=== PATIENT | female | born 1990 | race Caucasian/White ===

== ENCOUNTER → 2017-04-09 | Outpatient (CLI) | payer MEDICAID, OTHER ==
[~2017-04-09] MED LIST: ALPR.5T PO; ALPR0.254 PO; CITA10TA70 PO; DULO30CA3 PO; DULO30CA48 PO; FLUO15CR34 TOP; HYDR-3812 PO; IBP600T1 PO; IBUP-1779 PO; IBUP-30 PO; LYSI500T37 PO; MUPI15CR11 TOP; SULF-222 PO; SULF1TAB35 PO; [UNRECOGNIZED DRUG - OTHER] TOP
--- NOTE | 2017-04-09 19:01 | Diagnostic Imaging Report ---
INDICATION: survey. TECHNIQUE: Multiple real-time grayscale images were obtained over the gravid uterus. COMPARISON: None FINDINGS: heart rate is 149 beats per minute. The placenta is posterior. No placenta previa. The amniotic fluid amount appears within normal. The posterior fossa, lateral ventricles, four-chamber view, stomach, kidneys, cord insertion, bladder and two umbilical arteries are demonstrated with no abnormality. The spine appears unremarkable. Biometrical measurements are as follows: Biparietal 4.7 cm, age 20 weeks 2 days. Head circumference 16.8 cm, age 19 weeks 4 days. Abdominal circumference 14.5 cm, age 19 weeks 6 days. Femur length 3.0 cm, age 19 weeks 2 days. Sonographic estimate age: 19 weeks 6 days. This compares to a gestational age of 20 weeks and 1 day based on ARSENIO of 08/26/[address] Jacinto. Sonographic estimated date of delivery: 08/28/17. Estimated Weight: 301 gm (+/- 44 gm). LMP percentile: 18%. heart rate: 149 beats per minute. number: 1 of 1. IMPRESSION: Completed survey. Dictated by: Dictated on workstation # [id number]
== END ==
LOC: RAD 14:36
PROVIDERS: ATTEND Obstetrics & Gynecology
DX: Z34.82 Encounter for supervision of other normal pregnancy, second trimester (principal); Z36 Encounter for antenatal screening of mother; Z3A.19 19 weeks gestation of pregnancy
CPT/HCPCS: 76805

== ENCOUNTER 2017-08-20 09:23 | Inpatient (IN) | payer MEDICAID ==
[2017-08-20] VITALS (34 sets, daily range): BP systolic 87–162; BP diastolic 48–88
[~2017-08-20] VITALS: Ht 162.6 cm; Wt 69.4 kg
[2017-08-20] MEDS ORDERED: D5 LR IV SOLUTION 1,000 ML IV SCH (09:43)
[2017-08-20] MEDS ORDERED: MINERAL OIL CONCENTRATE 99.9% 15 ML UDC TOP PRN (09:45)
[2017-08-20 10:09] LABS: BASOPHILS % (AUTO) 0 % (0-10); EOSINOPHILS # (AUTO) 0.2 10^3/uL (0.0-0.3); EOSINOPHILS % (AUTO) 1 % (0-10); LYMPHOCYTES # (AUTO) 1.9 X 10^3 (1.0-4.0); LYMPHOCYTES % (AUTO) 11 % (12-44); MEAN CORPUSCULAR HEMOGLOBIN 27 PG (25-34); MEAN CORPUSCULAR HGB CONC 32 G/DL (32-36); MEAN CORPUSCULAR VOLUME 83 FL (80-99); MEAN PLATELET VOLUME 11.2 FL (7.4-10.4); MONOCYTES # (AUTO) 1.2 X 10^3 (0.0-1.0); MONOCYTES % (AUTO) 7 % (0-12); NEUTROPHILS # (AUTO) 13.9 X 10^3 (1.8-7.8); NEUTROPHILS % (AUTO) 81 % (42-75); PLATELET COUNT 253 10^3/uL (130-400); RED BLOOD COUNT 3.95 10^6/uL (4.35-5.85); WHITE BLOOD COUNT 17.2 10^3/uL (4.3-11.0)
[2017-08-20] MEDS ORDERED: SUFENTA 0.6MCG/ML BUPIVA 0.125 100 ML ONE (10:15)
[2017-08-20 10:29] LABS: BAND NEUTROPHILS 1 %; NEUTROPHILS % (MANUAL) 81 %
[2017-08-20 10:30] LABS: ANISOCYTOSIS SLIGHT; BASOPHILS % (MANUAL) 0 %; EOSINOPHILS % (MANUAL) 1 %; HYPOCHROMASIA SLIGHT; LYMPHOCYTES % (MANUAL) 11 %; POIKILOCYTOSIS SLIGHT; REACTIVE LYMPHOCYTES 1 %
[2017-08-20] MEDS ORDERED: BUPIVACAINE 0.25% 30 ML (SENSORCAINE) VIAL ONE ×2 (10:43)
[2017-08-20] MEDS ORDERED: fentaNYL INJECTION 100 MCG/2 ML AMP ONE ×2 (10:43→10:44)
[2017-08-20] MEDS: EPIDURAL (SUFENTA 0.6MCG/ML BUPIVA 0.125%) 100 ML BAG EPI SCH (11:00)
[2017-08-20] MEDS ORDERED: ONDANSETRON 4 MG/2 ML (SDV) Z0FRAN ONE (11:01)
[2017-08-20] MEDS ORDERED: LACTATED RINGERS 1,000 ML IV ONE (11:35)
[2017-08-20] MEDS ORDERED: NALOXONE 0.4 MG/ML 1 ML (NARCAN) VIAL IV PRN (11:45)
[2017-08-20] MEDS ORDERED: ONDANSETRON 4 MG/2 ML (SDV) Z0FRAN IV PRN (11:45)
--- NOTE | 2017-08-20 12:07 | History & Physical-OB ---
OB - Chief Complaint & HPI Date/Time Date of Admission: Date of Admission: 08/20/2017 Time Seen by Provider: 12:30 Chief Complaint/History OB-Reason for Admission/Chief: Onset of Labor Hx : 2 Hx Para: 0 Expected Date of Delivery: Aug 26, 2017 Gestational Age in Weeks: 39 Gestational Age in Days: 1 Admission Nurse Assessment Rev: Yes History of Labs A pos Antibody neg RI RPR NR HBsAg NR HIV NR GC neg GBS neg Hx of + THC Allergies and Home Medications Allergies Coded Allergies: No Known Drug Allergies (Unverified , 09/12/13) Home Medications Alprazolam 0.25 Mg Tablet, 0.25 MG PO BID PRN for ANXIETY, (Reported) Duloxetine HCl 30 Mg Capsule.dr, 30 MG PO DAILY, (Reported) Fluocinolone Acetonide 15 Gm Cream..g., TOP DAILY, (Reported) Hydrocodone/Acetaminophen 1 Each Tablet, 1 TAB PO Q4H PRN for pain, #20 Ref 0 Prescribed by: KAMLESH PARKER on 12/17/15 0955 Ibuprofen 400 Mg Tablet, 400 MG PO Q6H PRN for PAIN, #60 Prescribed by: KAMLESH PARKER on 12/17/15 0955 Lysine HCl 500 Mg Tablet, 500 MG PO DAILY, (Reported) Mupirocin Calcium 15 Gm Cream..g., TOP TID, (Reported) Sulfamethoxazole/Trimethoprim 1 Each Tablet, 1 TAB PO BID for 10 Days, (Reported ) 10 DAY SUPPLY FILLED 12-12-15 OB - History Hx of Present Care: Yes Ultrasounds: Normal mid trimester US Obstetrical Complications: None Medical Complications: None Other Concerns: History of drug abuse. + THC on urine dip Delivery History Hx Blood Disorders: No Adverse Rxn to Tranfusion: No Patient Past Medical History depression Social History/Family History HIV/AIDS: No Sexually Transmitted Disease: Yes (HPV) Immunizations Tetanus Booster (TDap): More than 5yrs OB - Admission Exam Physical Exam HEENT: NCAT Heart: Rhythm Normal Lungs: Clear Abdomen: Gravid Extremities: Normal Reflexes: Normal Cervical Dilatation: 3cm Effacement: 100% Station: -1 Membranes: Intact Heart Rate: 130's Accelerations: Accelerations Present Decelerations: No Decelerations Short Term Variability: Present Diagrammer And Seamer Variability: Average (6-25) Contractions on Admission: < 5 Minutes Apart Intensity: Firm Labs Laboratory Tests Test 08/20/17 09:55 Range/Units White Blood Count 17.2 H 4.3-11.0 10^3/uL Red Blood Count 3.95 L 4.35-5.85 10^6/uL Hemoglobin 10.5 L 11.5-16.0 G/DL Hematocrit 33 L 35-52 % Mean Corpuscular Volume 83 80-99 FL Mean Corpuscular Hemoglobin 27 25-34 PG Mean Corpuscular Hemoglobin Concent 32 32-36 G/DL Red Cell Distribution Width 15.0 H 10.0-14.5 % Platelet Count 253 130-400 10^3/uL Mean Platelet Volume 11.2 H 7.4-10.4 FL Neutrophils (%) (Auto) 81 H 42-75 % Lymphocytes (%) (Auto) 11 L 12-44 % Monocytes (%) (Auto) 7 0-12 % Eosinophils (%) (Auto) 1 0-10 % Basophils (%) (Auto) 0 0-10 % Neutrophils # (Auto) 13.9 H 1.8-7.8 X 10^3 Lymphocytes # (Auto) 1.9 1.0-4.0 X 10^3 Monocytes # (Auto) 1.2 H 0.0-1.0 X 10^3 Eosinophils # (Auto) 0.2 0.0-0.3 10^3/uL Basophils # (Auto) 0.0 0.0-0.1 10^3/uL Neutrophils % (Manual) 81 % Lymphocytes % (Manual) 11 % Monocytes % (Manual) 5 % Eosinophils % (Manual) 1 % Basophils % (Manual) 0 % Band Neutrophils 1 % Reactive Lymphocytes 1 % Toxic Granulation 1+ Hypochromasia SLIGHT Poikilocytosis SLIGHT Anisocytosis SLIGHT Elliptocytes SLIGHT OB - Assessment/Plan/Diagnosis Assessment Assessment: active labor Plan Plan: Expectant Management Discharge Diagnosis Diagnosis: 27 yo @ 39.1 Active labor GBS neg History of THC use with + UDS VITA BLOCK DO Aug 20, 2017 12:07 pm
[2017-08-20] MEDS ORDERED: CATHETER FLUSH 10 ML SYR IV SCH ×2 (14:00→22:00)
[2017-08-20] MEDS ORDERED: OXYTOCIN/NORMAL SALINE 500 ML IV ONE (15:03)
[2017-08-20] MEDS ORDERED: LIDOCAINE/EPI 2% 1:200,00 (XYLOCAINE) 10 ML VIAL ONE (15:03)
[2017-08-20] MEDS: OXYTOCIN/NORMAL SALINE 500 ML IV SCH ×2 (15:26→15:59)
--- NOTE | 2017-08-20 15:37 | OB Labor & Delivery Record ---
L&D History Date of Service Date of Service: Aug 20, 2017 History Expected Date of Delivery: Aug 26, 2017 Gestational Age in Weeks: 39 Hx : 2 Hx Para: 0 Complications Events: Routine care Operative Indications (Cesarea: N/A-Vaginal Delivery Intrapartal Events: None L&D Stage1 Stage One Onset of Labor - Date: Aug 20, 2017 Monitors and Tracing Monitor Mode: External Monitor Accelerations: Uniform Monitor Decelerations: None Station: -2 Kinesiology Internship Variability: Average (6-10) Short Term Variability: Present Presentation: Vertex Vital Signs VS - Last 72 Hours, by Label 08/20/17 08/20/17 08/20/17 08/20/17 10:10 10:27 10:46 10:51 Pulse 67 59 63 66 Resp 22 22 22 22 B/P (MAP) 162/88 151/88 144/69 132/76 Pulse Ox 100 100 O2 Delivery Room Air Room Air 08/20/17 08/20/17 08/20/17 08/20/17 11:01 11:06 11:10 11:14 Pulse 93 79 61 96 Resp 22 18 18 18 B/P (MAP) 120/75 93/52 87/48 111/52 Pulse Ox 100 100 100 98 O2 Delivery Room Air Room Air Room Air Room Air 08/20/17 08/20/17 08/20/17 08/20/17 11:17 11:30 11:34 11:39 Pulse 63 64 57 61 Resp 18 18 18 18 B/P (MAP) 95/49 93/51 104/56 92/51 Pulse Ox 99 100 100 99 O2 Delivery Room Air Room Air Room Air Room Air 08/20/17 08/20/17 08/20/17 08/20/17 11:44 11:48 11:52 12:11 Pulse 63 58 66 57 Resp 18 18 18 18 B/P (MAP) 105/58 108/64 109/54 121/59 Pulse Ox 99 100 100 100 O2 Delivery Room Air Room Air Room Air Room Air 08/20/17 08/20/17 08/20/17 12:18 12:24 12:44 Pulse 69 66 64 Resp 18 18 18 B/P (MAP) 130/74 117/79 127/74 Pulse Ox 96 99 99 O2 Delivery Room Air Room Air Room Air Rupture of Membranes Spontaneous Ruture of Membrane: No Amniotic Membrane Rupture Time: 12:45 Amniotic Membrane Fluid Desc.: Clear Vaginal Bleeding Description: Normal Show Progress/Notes Patient progressed to complete without any augmentation. Epidural received during labor course. L&D Stage2 Stage Two Stage II Date: Aug 20, 2017 Monitors and Tracing Monitor Mode: External Monitor Accelerations: None Monitor Decelerations: Variable Kinesiology Internship Variability: Average (6-10) Short Term Variability: Present Position: Right Occiput Anterior Presentation: Vertex Cord Descript/Complications Cord Vessel Description: 3 Vessels Delivery Type Infant Delivery Method: Spontaneous Vaginal Anterior Shoulder: Right Episiotomy/Perineal Laceration Laceraction(s)/Extensions: Yes Episiotomy Description: Perineal Extension/lac, 1st degree Sutures Used: Vicryl Degree (describe repair) 1st degree perineal laceration repaired using 3-0 vicryl rapide. Condition of Infant Delivery 1 minute Comment: 8 5 minute Comment: 9 Condition of Condition of : Living Exam: No Observed Abnormalities live female weight 6lbs 11 oz Resuscitation Resuscitation: N/A - Spontaneous Resp L&D Stage3 Stage Three Stage III Date: Aug 20, 2017 Pictocin Pitocin Administration Comment: 30 mu wide open at delivery of placenta Placenta Delivery Placenta Delivery: Spontaneous Delivery Summary Summary Estimated blood loss (mL): 250 Condition of Delivery Examined: Cervix Examined, Uterus Explored Post Hemorrhage: No Condition of Mother stable Condition of (s) stable UMAIRVITA Supriya LOPEZ Aug 20, 2017 3:37 pm
[2017-08-20] MEDS ORDERED: TETANUS,DIPTH,PERTUSS P/F (BOOSTRIX) 0.5 ML VIAL IM ONE (15:45)
[2017-08-20] MEDS ORDERED: APAP 300 MG/CODEINE 30 MG (TYLENOL #3) TAB PO PRN (15:45)
[2017-08-20] MEDS ORDERED: MEASLES,MUMPS,RUBELLA 1 EA INJ SQ ONE (15:45)
[2017-08-20] MEDS: IBUPROFEN 600 MG (MOTRIN) TAB PO SCH ×2 (16:46→23:06)
[2017-08-20] MEDS ORDERED: PREN-53 PO (18:42)
[2017-08-20] MEDS: DIBUCAINE (NUPERCAINAL) 1% OINT 30 GM TOP PRN (19:59)
[2017-08-20] MEDS: DOCUSATE SODIUM 100 MG (COLACE) CAP PO SCH (19:59)
[2017-08-20] MEDS: WITCH HAZEL(TUCKS) 40 EA JAR TOP PRN (20:00)
[2017-08-20] MEDS: BENZOCAINE/MENTHOL (DERMOPLAST) 56 ML CAN TP PRN (20:00)
--- OUTSIDE RECORDS SUMMARY | 2017-08-20 21:18 | XMS REPORT ---
Author YANICK [facility] eClinicalWorks Address Unknown Phone Unavailable Care Team Providers Care Restaurant Managing Partner Name Role Phone YANICK GUTIERRZE CP Unavailable Allergies, Adverse Reactions, Alerts Substance Reaction Event Type N.K.D.A. Info Not Available Non Drug Allergy Problems Problem Type Condition Code Onset Dates Condition Status Assessment Acute pain of right shoulder M25.511 Active Medications No Known Medications Procedures Procedure Coding System Code Date Office Visit, New Pt., Level 3 CPT-4 28328 May 20, 2016 Vital Signs Date/Time: May 20, 2016 Cardiac Monitoring Heart Rate 108 bpm Weight 123.7 lbs Height 64 in Blood Pressure Diastolic 70 mmHg Blood Pressure Systolic 110 mmHg Results No Known Results Summary Purpose eClinicalWorks Submission
--- OUTSIDE RECORDS SUMMARY | 2017-08-20 21:19 | XMS REPORT | Continuity of Care Document ---
Author Author [facility] Organization [facility] Address Unknown Phone Unavailable Allergies Active Description Code Type Severity Reaction Onset Reported/Identified Relationship to Patient Clinical Status Yes No Known Drug Allergies [id number] Drug Allergy Unknown N/ A 09/12/2013 Medications Problems Date Dx Coded Attending Type Code Diagnosis Diagnosed By 09/12/2013 DARREN SANTANA, YOSEPH T Ot 923.11 CONTUSION OF ELBOW 09/12/2013 DARREN SANTANA, YOSEPH T Ot 959.2 SHLDR/UPPER ARM INJ NOS 09/12/2013 DARREN SANTANA, YOSEPH T Ot E000.8 OTHER EXTERNAL CAUSE STATUS 09/12/2013 DARREN SANTANA, YOSEPH T Ot E849.0 ACCIDENT IN HOME 09/12/2013 DARREN SANTANA, YOSEPH T Ot E880.9 FALL ON STAIR/STEP NEC 12/17/2015 KAMLESH PARKER DO Ot B95.62 METHICILLIN RESIS STAPH INFCT CAUSING DI 12/17/2015 KAMLESH PARKER DO Ot F32.9 MAJOR DEPRESSIVE DISORDER, SINGLE EPISOD 12/17/2015 KAMLESH PARKER DO Ot F41.9 ANXIETY DISORDER, UNSPECIFIED 12/17/2015 KAMLESH PARKER DO Ot L02.415 CUTANEOUS ABSCESS OF RIGHT LOWER LIMB 12/17/2015 KAMLESH PARKER DO Ot L40.9 PSORIASIS, UNSPECIFIED 04/10/2017 VITA BLOCK DO Ot Z34.82 ENCOUNTER FOR SUPRVSN OF NORMAL PREGNANC 04/10/2017 VITA BLOCK DO Ot Z36 ENCOUNTER FOR SCREENING OF MOT 04/10/2017 VITA BLOCK DO Ot Z3A.19 19 WEEKS GESTATION OF 04/10/2017 VITA BLOCK DO Ot Z34.82 ENCOUNTER FOR SUPRVSN OF NORMAL PREGNANC 04/10/2017 VITA BLOCK DO Ot Z36 ENCOUNTER FOR SCREENING OF MOT 04/10/2017 VITA BLOCK DO Ot Z3A.19 19 WEEKS GESTATION OF 04/21/2017 VITA BLOCK DO Ot Z34.82 ENCOUNTER FOR SUPRVSN OF NORMAL PREGNANC 04/21/2017 VITA BLOCK DO Ot Z36 ENCOUNTER FOR SCREENING OF MOT 04/21/2017 VITA BLOCK DO Ot Z3A.19 19 WEEKS GESTATION OF 04/24/2017 VITA BLOCK DO Ot Z34.82 ENCOUNTER FOR SUPRVSN OF NORMAL PREGNANC 04/24/2017 VITA BLOCK DO Ot Z36 ENCOUNTER FOR SCREENING OF MOT 04/24/2017 VITA BLOCK DO Ot Z3A.19 19 WEEKS GESTATION OF Procedures Code Description Performed By Performed On [id number] EXCISION OF R LOW LEG SUBCU/FASCIA, OPEN 12/14/2015 Results Encounters ACCT No. Visit Date/Time Discharge Status Pt. Type Provider Facility Loc./Unit Complaint [id number] 06/23/2014 19:49:35 06/23/2014 23: 59:59 CLS Outpatient Alexandre Kaye [id number] 04/09/2017 14:36:00 2016 23:59:59 CLS Outpatient VITA BLOCK DO [facility] RAD ANATOMY SCREEN [id number] 12/13/2015 16:06:00 2015 10:50:00 DIS Inpatient KAMLESH PARKER DO [facility] 4TH RT LEG MRSA [id number] 09/12/2013 05:05:00 2012 06:35:00 DIS Emergency DARREN SANTANA, YOSEPH Cameron [facility] ER LEFT ARM PAIN, POSS BROKEN [id number] 04/26/2013 09:52:00 2012 23:59:59 CLS Outpatient MAJOR, MONISHA GAME PROTECTOR [facility] QUICK FOOT PAIN
[2017-08-21] VITALS: BP 121/71
[2017-08-21 04:15] VITALS: BP 117/66
[2017-08-21] MEDS: IBUPROFEN 600 MG (MOTRIN) TAB PO SCH ×3 (04:24→19:39)
[2017-08-21 05:51] LABS: BASOPHILS % (AUTO) 0 % (0-10); EOSINOPHILS # (AUTO) 0.2 10^3/uL (0.0-0.3); EOSINOPHILS % (AUTO) 1 % (0-10); LYMPHOCYTES # (AUTO) 2.8 X 10^3 (1.0-4.0); LYMPHOCYTES % (AUTO) 18 % (12-44); MEAN CORPUSCULAR HEMOGLOBIN 27 PG (25-34); MEAN CORPUSCULAR HGB CONC 32 G/DL (32-36); MEAN CORPUSCULAR VOLUME 84 FL (80-99); MEAN PLATELET VOLUME 10.6 FL (7.4-10.4); MONOCYTES # (AUTO) 1.4 X 10^3 (0.0-1.0); MONOCYTES % (AUTO) 9 % (0-12); NEUTROPHILS % (AUTO) 71 % (42-75); PLATELET COUNT 207 10^3/uL (130-400); RED BLOOD COUNT 3.03 10^6/uL (4.35-5.85); WHITE BLOOD COUNT 15.4 10^3/uL (4.3-11.0)
[2017-08-21] MEDS ORDERED: INFLUENZA TRIvalent 2017-2018 0.5 ML/45 MCG SYR IM ONE (08:15)
--- NOTE | 2017-08-21 09:16 | Anesthesia-Regional Post-Op ---
Regional Patient Condition Mental Status: Alert, Oriented x3 Circulation: Same as Pre-Op Headache: Absent Sensation: Full Recovery Motor Block: Absent Post Op Complications Complications None Follow Up Care/Instructions Patient Instructions None needed. Anesthesia/Patient Condition Patient is doing well, no complaints, stable vital signs, no apparent adverse anesthesia problems. No complications reported per nursing. ISABELA PEARSON CRNA Aug 21, 2017 09:16
[2017-08-21] MEDS ORDERED: TETANUS,DIPTH,PERTUSS P/F (BOOSTRIX) 0.5 ML VIAL IM ONE (09:17)
[2017-08-21] MEDS: BENZOCAINE/MENTHOL (DERMOPLAST) 56 ML CAN TP PRN (09:29)
[2017-08-21] MEDS: WITCH HAZEL(TUCKS) 40 EA JAR TOP PRN (09:29)
[2017-08-21] MEDS: DIBUCAINE (NUPERCAINAL) 1% OINT 30 GM TOP PRN (09:29)
[2017-08-21] MEDS: PRENATAL VITAMIN 1 EA TAB PO SCH (09:30)
[2017-08-21] MEDS: DOCUSATE SODIUM 100 MG (COLACE) CAP PO SCH ×2 (09:30→22:22)
[2017-08-21] MEDS: FERROUS SULF 325 MG (IRON) TAB PO SCH (09:30)
--- NOTE | 2017-08-21 09:31 | Discharge Inst-Women's Service ---
Discharge Inst-Women's Serv Depart Medication/Instructions New, Converted or Re-Newed RX: RX on Chart Consults/Follow Up Additional Follow Up: Yes Orders/Referrals Dr. Block in 6 weeks Activity Activity: Activity as Tolerated Driving Instructions: No Driving for 1 Week NO SMOKING: NO SMOKING Nothing Inside Vagina: No Douching, No [place], No Tampons Diet Discharge Diet: No Restrictions Symptoms to Report to : Bleeding Excessive, Pain Increased, Fever Over 101 Degrees F, Vaginal Bleeding Increase, Questions/Concerns For Any Problems or Questions: Contact Your Physician Skin/Wound Care Bathing Instructions: Shower (x 2 weeks) VITA BLOCK DO Aug 21, 2017 9:30 am
[2017-08-21] MEDS ORDERED: IBUP-1773 PO (09:32)
[2017-08-21] MEDS ORDERED: BENZ56AE2 TP (09:32)
[2017-08-21] MEDS ORDERED: ACET1TAB43 PO (09:32)
[2017-08-21 09:35] VITALS: BP 126/86
--- NOTE | 2017-08-21 10:19 | Progress Note-Standard ---
Standard Progress Note Progress Notes/Assess & Plan Date Seen by Provider: Aug 21, 2017 Time Seen by Provider: 09:55 Progress/Assessment & Plan Day # 1 Subjective: Patient is without complaints. Ambulating, voiding. Tolerating a regular diet without nausea or vomiting. Normal lochia. Pain is well controlled with oral pain medications. breast feeding Objective: Vital Sign - Last 24 Hours 08/20/17 08/20/17 08/20/17 08/20/17 10:27 10:46 10:51 11:01 Pulse 59 63 66 93 Resp 22 22 22 22 B/P (MAP) 151/88 144/69 132/76 120/75 Pulse Ox 100 100 100 O2 Delivery Room Air Room Air Room Air 08/20/17 08/20/17 08/20/17 08/20/17 11:06 11:10 11:14 11:17 Pulse 79 61 96 63 Resp 18 18 18 18 B/P (MAP) 93/52 87/48 111/52 95/49 Pulse Ox 100 100 98 99 O2 Delivery Room Air Room Air Room Air Room Air 08/20/17 08/20/17 08/20/17 08/20/17 11:30 11:34 11:39 11:44 Pulse 64 57 61 63 Resp 18 18 18 18 B/P (MAP) 93/51 104/56 92/51 105/58 Pulse Ox 100 100 99 99 O2 Delivery Room Air Room Air Room Air Room Air 08/20/17 08/20/17 08/20/17 08/20/17 11:48 11:52 12:11 12:18 Pulse 58 66 57 69 Resp 18 18 18 18 B/P (MAP) 108/64 109/54 121/59 130/74 Pulse Ox 100 100 100 96 O2 Delivery Room Air Room Air Room Air Room Air 08/20/17 08/20/17 08/20/17 08/20/17 12:24 12:44 12:58 13:29 Pulse 66 64 61 68 Resp 18 18 18 18 B/P (MAP) 117/79 127/74 131/80 132/79 Pulse Ox 99 99 O2 Delivery Room Air Room Air Room Air Room Air 08/20/17 08/20/17 08/20/17 08/20/17 13:44 14:00 14:29 15:00 Temp 98.2 Pulse 75 89 58 65 Resp 18 18 18 20 B/P (MAP) 131/74 122/60 141/75 128/60 O2 Delivery Room Air Room Air Room Air Room Air 08/20/17 08/20/17 08/20/17 08/20/17 15:16 15:27 15:42 15:57 Pulse 72 65 85 97 Resp 20 20 20 20 B/P (MAP) 134/68 121/58 140/81 119/62 O2 Delivery Room Air Room Air Room Air Room Air 08/20/17 08/20/17 08/20/17 08/20/17 16:28 16:42 17:01 17:11 Temp 98.4 Pulse 71 67 65 87 Resp 20 20 18 18 B/P (MAP) 130/60 113/56 115/63 119/64 O2 Delivery Room Air Room Air Room Air Room Air 08/20/17 08/21/17 08/21/17 08/21/17 20:57 00:00 04:15 09:35 Temp 98.4 99.1 98.7 98.3 Pulse 69 72 68 75 Resp 18 18 18 18 B/P (MAP) 109/50 121/71 117/66 126/86 Pulse Ox 99 98 98 96 O2 Delivery Room Air Room Air Room Air Room Air Physical Exam: General - Alert and oriented, no apparent distress Abdomen - Soft, appropriately tender to palpation, non-distended, fundus firm at umbilicus Extremities - no edema, negative Yandel's bilaterally Assessment: 1. post- day # 1, status post vaginal delivery. Recovering well, hemodynamically stable Plan: Routine care. Encourage breast feeding. Encourage ambulation. Ferrous sulfate supplementation. Plan for discharge tomorrow VITA BLOCK DO Aug 21, 2017 10:19 am
[2017-08-21 13:00] VITALS: BP 118/72
[2017-08-21 19:43] VITALS: BP 122/76
[2017-08-22 02:12] VITALS: BP 103/62
[2017-08-22] MEDS: IBUPROFEN 600 MG (MOTRIN) TAB PO SCH ×2 (02:12→08:59)
[2017-08-22] MEDS ORDERED: FERR-74 PO (07:54)
--- NOTE | 2017-08-22 08:09 | Progress Note-Standard ---
Standard Progress Note Progress Notes/Assess & Plan Date Seen by Provider: Aug 22, 2017 Time Seen by Provider: 07:45 Progress/Assessment & Plan Day # 2 Subjective: Patient is without complaints. Ambulating, voiding. Tolerating a regular diet without nausea or vomiting. Normal lochia. Pain is well controlled with oral pain medications. breast feeding Objective: Vital Sign - Last 24 Hours 08/21/17 08/21/17 08/21/17 08/22/17 09:35 13:00 19:43 02:12 Temp 98.3 97.9 97.6 98.2 Pulse 75 81 73 73 Resp 18 18 18 18 B/P (MAP) 126/86 118/72 122/76 103/62 Pulse Ox 96 99 99 97 O2 Delivery Room Air Room Air Room Air Room Air Physical Exam: General - Alert and oriented, no apparent distress Abdomen - Soft, appropriately tender to palpation, non-distended, fundus firm at umbilicus Extremities - no edema, negative Yandel's bilaterally Assessment: 1. post- day # 2, status post vaginal delivery. Recovering well, hemodynamically stable Plan: Routine care. Encourage breast feeding. Encourage ambulation. Ferrous sulfate supplementation. Plan for discharge today VITA BLOCK DO Aug 22, 2017 8:09 am
[2017-08-22 08:55] VITALS: BP 121/75
[2017-08-22] MEDS: PRENATAL VITAMIN 1 EA TAB PO SCH (08:58)
[2017-08-22] MEDS: DOCUSATE SODIUM 100 MG (COLACE) CAP PO SCH (08:59)
[2017-08-22] MEDS: FERROUS SULF 325 MG (IRON) TAB PO SCH (08:59)
== END 2017-08-22 12:30 | disposition home or self-care (01) | DRG 775 ==
LOC: WSo 09:23 → LDRP 09:24
PROVIDERS: ADMIT Obstetrics & Gynecology; ATTEND Obstetrics & Gynecology
PROC: 0HQ9XZZ Repair Perineum Skin, External Approach (ICD-10-PCS; principal; 2017-08-20)
PROC: 10E0XZZ Delivery of Products of Conception, External Approach (ICD-10-PCS; 2017-08-20)
DX: O99.324 Drug use complicating childbirth (principal); F12.90 Cannabis use, unspecified, uncomplicated; O70.0 First degree perineal laceration during delivery; Z3A.39 39 weeks gestation of pregnancy; Z37.0 Single live birth; Z23 Encounter for immunization
CPT/HCPCS: 36415; 85007; 85025; 85027; 86850; 86900; 86901; 90715; 99212